=== PATIENT | female | born 1955 | race Caucasian/White ===

== ENCOUNTER 2024-08-19 06:20 | Emergency (ER) | payer MEDICARE, SELFPAY ==
[2024-08-19 06:21] VITALS: BP 171/51; PULSE 60; RESP 15; TEMP 36.6; O2SAT 98; BMI 36.3
[2024-08-19 06:27] VITALS: BP 171/51; PULSE 60; RESP 18; TEMP 36.6; O2SAT 98
--- NOTE | 2024-08-19 06:55 | ED.VIS.DENTA ---
HPI History of Present Illness Chief Complaint: Dental Detail of Chief Complaint: Dental pain involving tooth #4 Informant: patient Onset/Context/Timing Onset: Yesterday Context: Sudden Onset Timing: Continuous Quality: Pain Location: Tooth #4 Current Severity: Mild Maximum Severity: Severe Worsened by: Cold liquids and chewing Relieved by: - (Nothing) Associated Symptoms Assocated Symptom - Dental: face swelling and cold sensitivity; Negative for fever, jaw swelling or hot sensitivity Narrative Narrative: Patient is a 68-year-old woman with history of hypertension and hypercholesterolemia presents with dental pain. She localized the pain to tooth #4. Chewing and cold liquids make it worse. She has no atraumatic fever, heart murmur, mitral prolapse. She states she has had drooling. She denies fever or chills. She denies change in voice. She has not noted a rash. Prior similar symptoms: No Recent Illness/Hospitalization: No [facility] Medical History Abdominal hernia Depression Hyperlipemia Hypertension Home Medications ?Medication ?Instructions ?Recorded ?Last Taken ?Type bupropion HCl 300 mg 24 hr tablet, 300 mg PO DAILY 08/19/24 Unknown History extended release (Wellbutrin XL) hydralazine 10 mg tablet 10 mg PO BID 08/19/24 Unknown History hydrocodone-acetaminophen 5-325mg 1 tab PO Q6H PRN PRN Pain 3 days 08/19/24 Unknown Rx 5mg-325mg #10 TABLETS labetalol 200 mg tablet 200 mg PO BID 08/19/24 Unknown History losartan 100 mg tablet (Cozaar) 100 mg PO DAILY 08/19/24 Unknown History nifedipine 30 mg tablet,extended 30 mg PO DAILY 08/19/24 Unknown History release penicillin V potassium 500 mg 500 mg PO 4X/DAY #40 tabs 08/19/24 Unknown Rx tablet rosuvastatin 20 mg tablet (Crestor) 20 mg PO DAILY 08/19/24 Unknown History Allergy/AdvReac Type Severity Reaction Status Date / Time TONA Inhibitors AdvReac PT UNSURE Verified 08/19/24 06:22 OF REACTION Surgical History H/O: hysterectomy Social History (Updated 08/19/24 @ 06:[address] Bhupinder Davenport MD) household members: spouse Smoking Status: Former smoker ROS ROS ED Constitutional Constitutional ED: Denies chills, fever(s) or subjective Eyes Eyes: Denies blurry vision or change in vision ENT ENT ED: Reports other Details: Per HPI narrative ; Denies rhinorrhea or sore throat Cardiovascular Cardiovascular: Denies chest pain or palpitations Gastrointestinal Gastrointestinal: Denies nausea or vomiting Musculoskeletal Musculoskeletal: Denies arthralgias, myalgias or neck pain Integumentary Denies rash EXAM Physical Exam Const Vital Signs: 08/19/24 06:21 08/19/24 06:27 Temperature 98 F 98 F Temperature Source Temporal Temporal Pulse Rate 60 60 Respiratory Rate 15 18 Blood Pressure 171/51 H 171/51 H Blood Pressure Mean 91 91 Pulse Ox 98 98 Oxygen Delivery Method Room Air Room Air Positive well nourished and well developed Constitutional Narrative: Blood pressure noted to be elevated. BMI is 36.3. General Appearance ED: well developed HEENT HEENT Narrative: Patient has tenderness tooth #4. There is no evidence of fistulization of the apical abscess. There is swelling of the face over the right maxillary region. There is no evidence of facial cellulitis. Negative for trauma or tenderness Face and Sinus: Negative for sinuses nontender Mouth ED: Yes oral and palatal mucosa normal, Yes lips normal, Yes tongue normal, Yes salivary gland normal, No mouth trauma and Yes oral and palatal mucosa abnormal Mouth: oral and palatal mucosa normal, lips normal, tongue normal, salivary gland normal, No mouth trauma and oral and palatal mucosa abnormal Teeth and Gingiva: abnormal tooth and associated gingiva; Negative for caries, gingiva abnormal, poor dentition or teeth discoloration Throat: posterior oropharynx normal Eyes PERRL and EOMs intact bilaterally General Eye ED: Negative for pale conjunctiva or scleral icterus Neck no lymphadenopathy, supple and no JVD Resp normal respiratory effort, no retractions and clear to auscultation bilaterally Cardio regular rate, regular rhythm, S1 normal heart sound, S2 normal heart sound and no murmurs Neuro oriented x3 and CN's II-XII intact bilaterally Sensorium / Orientation: alert Psych mental status grossly normal Skin no rashes or lesions noted and no wounds MDM MDM MDM Narrative Medical decision making narrative: Patient's history and physical consistent with an apical abscess that has not fistulized. She also has based on history evidence of a reversible pulpitis. Will treat patient with antibiotics and pain med. There is no concern for facial cellulitis. There is no concern for systemic infection. Blood pressure is elevated most likely due to the fact that she is in pain. She does have a dentist. She did contact her dentist. They will be able to see her on . Discharge Plan Triage Chief Complaint: Dental ED Provider: Bhupinder Davenport Dx/Rx/DC Orders Clinical Impression: Abscess, apical, Symptomatic reversible pulpitis, Elevated blood pressure reading with diagnosis of hypertension Instructions: ED Dental Abscess Prescriptions: New hydrocodone-acetaminophen 5-325 mg tablet 1 tab PO Q6H PRN PRN (Reason: Pain) 3 Days Qty: 10 0RF penicillin V potassium 500 mg tablet 500 mg PO 4X/DAY Qty: 40 0RF No Action bupropion HCl [Wellbutrin XL] 300 mg tablet extended release 24 hr 300 mg PO DAILY hydralazine 10 mg tablet 10 mg PO BID labetalol 200 mg tablet 200 mg PO BID losartan [Cozaar] 100 mg tablet 100 mg PO DAILY nifedipine 30 mg tablet extended release 30 mg PO DAILY rosuvastatin [Crestor] 20 mg tablet 20 mg PO DAILY Primary Care Provider: BENTON MERIDA MD Referrals: Care Physician,No Primary [Non-Staff] - Print Language: Armenian Disposition Disposition: Home, Self Care
[2024-08-19] MEDS: Penicillin Vk 250 MG Tablet 500 MG PO (07:00)
[2024-08-19] MEDS: oxyCODONE 5 MG Tablet PO (07:01)
[2024-08-19 07:04] VITALS: BP 163/89; PULSE 60; RESP 16; TEMP 36.6; O2SAT 98
== END 2024-08-19 07:08 | disposition home or self-care (01) ==
PROVIDERS: Emergency Provider Emergency Medicine; Visit Provider Emergency Medicine
DX: L02.91 Cutaneous abscess, unspecified (principal); K04.01 Reversible pulpitis; Z87.891 Personal history of nicotine dependence; R03.0 Elevated blood-pressure reading, without diagnosis of hypertension; Z90.710 Acquired absence of both cervix and uterus; E78.5 Hyperlipidemia, unspecified; F32.A Depression, unspecified
CPT/HCPCS: 99283